=== PATIENT | female | born 1945 | race Hispanic/Latino ===

== ENCOUNTER 2025-01-01 12:46 | Emergency (ER) | payer OTHER ==
[~2025-01-01] VITALS: Ht 172.7 cm; Wt 108.0 kg
--- NOTE | 2025-01-01 13:23 | ERN ---
ED Note History of Present Illness Stated Complaint: FLU SYMPTOMS Chief Complaint: Influenza Time Seen by MD: 13:07 Time Seen by Midlevel: 13:07 Dictation: The Patient is a 79-year-old female with a history of diabetes, hypertension, back surgery who presents to the emergency department with complaints of shortness of breath, chest pain, nonproductive cough onset two days ago. Patient reports she tested positive for the flu two days ago and was started on Tamiflu by PCP. Denies any fevers. Allergies: Coded Allergies: codeine (Unverified Allergy, Unknown, 01/01/25) Home Meds Active Scripts Nirmatrelvir/Ritonavir (Paxlovid 150-100 mg (Moderate)) 150 Mg (10)-100 Mg (10) Tab.ds.pk, 1 EACH PO BID for 5 Days, #10 TAB Prov:ALEKSANDER BARRERA RECREATION OFFICER 01/01/25 Past Medical History Past Medical History: Diabetes-Type II, Hypertension Surgical History: Other Surgical History Other: PT DENIES RN Note Reviewed/Agreed w/PFSH: Yes Review of System Dictation Constitutional: Negative for fever,chills, and weight loss Eyes: Negative for injury, pain,redness, and discharge ENT: Negative for injury,pain or swelling Cardiovascular: Negative for palpitations, and edema positive for chest pain Respiratory: positive for shortness of breath, cough, wheezing Abdomen/GI: Negative for abdominal pain, nausea, vomiting, diarrhea, and constipation Back: Negative for injury and pain : Negative for injury, bleeding and discharge MS/Extremity: Negative for injury and deformity Skin: Negative for rash, and discoloration Neuro: Negative for headache, weakness, numbness, tingling, and seizure Psych: Negative for suicide ideation, homicidal ideation, and hallucinations Initial Vital Sign VS Vital Signs Date Time Temp Pulse Resp B/P (MAP) Pulse Ox O2 Delivery O2 Flow Rate FiO2 01/01/25 12:48 99.5 89 20 132/52 92 Room Air* 0 21 Physical Exam Dictation Vital Signs reviewed General Appearance: Alert, oriented x 3, no acute distress, well developed, nourished. Head and Face: non-traumatic. Eyes: PERRL, pink conjunctivas, eyelid no trauma, anterior chamber with arcus senilis. Ears: Pinnas intact and no signs of trauma or erythema ear canals clear and no discharge TM no erythema Nose: No discharge, no bleeding. Oropharynx: Mouth normal, tongue pink. pharynx clear,no erythema, tonsils no exudates, no abscesses noted, mucous membrane moist Neck: Supple, non-tender, no thyromegaly, no masses, no JVD, no bruits Breast:Deferred Chest:No tenderness, no crepitus, no paradoxical movement, no retractions Lungs:Clear, well-ventilated, symmetric, no rales, mild wheezing, no rhonchi, no stridor, good breath sounds bilaterally Heart: Regular rate, regular rhythm, no murmur, no gallops Vascular: no peripheral edema, Abdomen: Soft, positive bowel sounds, nondistended, no guarding, nontender, no rebound, no masses no hepatomegaly, no splenomegaly, no Olson's sign, no hernias. Rectal: Deferred Genital: Deferred Neurological: Normal speech, motor function intact, sensory function intact Musculoskeletal: Neck nontender, full range of motion, back nontender, full range of motion, Extremities: nontender, full range of motion Skin: Color pink, dry, no turgor, no rash, no lacerations, no abrasions, no contusions. Lymphatic: Deferred Results (Laboratory/Radiology) Laboratory/Radiology Laboratory Tests Test 01/01/25 13:15 01/01/25 13:25 01/01/25 13:42 01/01/25 15:18 Influenza Type A Antigen Negative For Type A Influenza Type B Antigen Negative For Type B SARS-CoV-2 Antigen (Rapid) POSITIVE FOR SARS AG White Blood Count 6.6 K/uL (4.8-10.8) Red Blood Count 3.89 MIL/uL (4.00-5.50) L Hemoglobin 11.5 g/dL (12.0-16.0) L Hematocrit 35.7 % (36-48) L Mean Corpuscular Volume 91.8 fL (79-99) Mean Corpuscular Hemoglobin 29.6 pg (27.0-33.0) Mean Corpuscular Hemoglobin Concent 32.2 g/dL (32.0-36.0) Red Cell Distribution Width 14.9 % (11.0-15.5) Platelet Count 183 K/uL (130-400) Mean Platelet Volume 10.8 fL (7.5-10.5) H Immature Granulocyte % (Auto) 0.5 % (0-1) Neutrophils (%) (Auto) 61.2 % (40.0-77.0) Lymphocytes (%) (Auto) 21.3 % (21.0-51.0) Monocytes (%) (Auto) 15.3 % (3.0-13.0) H Eosinophils (%) (Auto) 0.9 % (0.0-8.0) Basophils (%) (Auto) 0.8 % (0.0-5.0) Neutrophils # (Auto) 4.1 K/uL (1.8-7.7) Lymphocytes # (Auto) 1.4 K/uL (1.0-4.8) Monocytes # (Auto) 1.0 K/uL (0.1-1.0) Eosinophils # (Auto) 0.06 K/uL (0.00-0.70) Basophils # (Auto) 0.05 K/uL (0.00-0.20) Absolute Immature Granulocyte (auto 0.03 K/uL (0-1) Segmented Neutrophils % 55 % (40-70) Band Neutrophils % 11 % (0-2) H Lymphocytes % (Manual) 28 % (22-44) Monocytes % (Manual) 5 % (2-9) Eosinophils % (Manual) 1 % (1-6) Nucleated Red Blood Cells 0.0 % (0.0-0.19) Differential Comment MANUAL DIFFERENTIAL White Cell Morphology Comment CONSISTENT W/DIFF Platelet Morphology Comment ADEQUATE Red Blood Cell Morphology ANISO 1+ Sodium Level 142 mmol/L (136-145) Potassium Level 4.2 mmol/L (3.5-5.1) Chloride Level 104 mmol/L (101-111) Carbon Dioxide Level 26 mmol/L (21-32) Blood Urea Nitrogen 21 mg/dL (7-18) H Creatinine 1.2 mg/dL (0.5-1.0) H Glomerular Filtration Rate Calc 46 mL/min (>90) Random Glucose 132 mg/dL (70-105) H Total Calcium 8.8 mg/dL (8.5-10.1) Magnesium Level 2.00 mg/dL (1.80-2.40) Total Creatine Kinase 244 U/L (21-232) H Troponin I High Sensitivity 20 ng/L (4-50) 16 ng/L (4-50) B-Type Natriuretic Peptide 45 pg/mL (0-100) Blood Gas Specimen Type Arterial Arterial Blood pH 7.464 (7.350-7.450) Arterial Blood Partial Pressure CO2 33 mmHg (32-45) Arterial Blood Partial Pressure O2 75.6 mmHg (83.0-108.0) L Arterial Blood HCO3 23.1 mmol/L (21.0-28.0) Arterial Blood Oxygen Saturation 96.0 % (94.0-98.0) Arterial Blood Base Excess 0.1 mmol/L (-2.0-3.0) Blood Gas Temperature 37.0 CELSIUS (35.5-37.0) Blood Gas Vent Mode RA (ROOM AIR) FiO2 21.0 % Blood Gas Specimen Comment JOSSUE ZHAO RN REASON: cp ORDERING PHYSICIAN: ALEKSANDER BARRERA PROCEDURE: CXR1VW - CHEST 1VW PORTABLE CHEST RADIOGRAPH INDICATION: cp COMPARISON: None FINDINGS: Heart size is normal. The pulmonary vascularity and néstor appear normal. No abnormal pulmonary parenchymal opacity or consolidation identified. No significant pleural effusion noted. No pneumothorax detected. IMPRESSION: No radiographic evidence for any acute cardiopulmonary process. Labs Reviewed?: Yes EKG: (+) rhythm (Sinus rhythm) EKG Comment: Date:01/01/2025 Time:1321 Ventricular rate:79 DC interval:249 QRS duration:75 QT/QTc:395 EKG interpretation: Sinus rhythm Reviewed by ED Attending STEMI ED Course ED Course Orders Procedure Category Date Status Time Cbc With Differential LAB 01/01/25 Complete 13:13 B-Type Natriuretic LAB 01/01/25 Complete Peptide 13:13 Chest 1vw RAD 01/01/25 Resulted 13:13 12 Lead Ekg Tracing- EKG 01/01/25 Complete Technical 13:13 0.9%Nacl 1000ml (Ns PHA 01/01/25 Complete 1000ml) 13:30 Magnesium LAB 01/01/25 Complete 13:13 Creatine Kinase, Total LAB 01/01/25 Complete 13:13 Troponin I High LAB 01/01/25 Complete Sensitivity 13:13 Aspirin 325mg Tab PHA 01/01/25 Complete (Aspirin 325mg Tab) 13:30 Basic Metabolic Panel LAB 01/01/25 Complete 13:13 Covid19 (Sars Antigen LAB 01/01/25 Complete Rapid) 13:13 Influenza Type A & B, LAB 01/01/25 Complete Rapid 13:13 Methylprednisolone PHA 01/01/25 Complete Succ 125mg (Solu-Medr 13:30 Ipratropium/Albuterol PHA 01/01/25 Complete Neb (Duoneb) 13:30 Arterial Blood Gas RT 01/01/25 Transmitted 13:13 Arterial Blood Gas LAB 01/01/25 Complete 13:42 Manual Differential LAB 01/01/25 Complete 13:25 Troponin I High LAB 01/01/25 Complete Sensitivity 14:34 Current Medications Medications (Trade) Dose Ordered Sig/Ekta Route PRN Reason Start Time Stop Time Status Last Admin Dose Admin Albuterol (DUOneb) 1 UDVIAL ONCE ONCE IH 01/01/25 13:30 01/01/25 13:31 DC 01/01/25 13:46 Aspirin (Aspirin 325mg Tab) 325 mg ONCE ONCE PO 01/01/25 13:30 01/01/25 13:31 DC 01/01/25 13:38 Methylprednisolone Sodium Succinate (Solu-medROL 125MG) 125 mg ONCE ONCE IVP 01/01/25 13:30 01/01/25 13:31 DC 01/01/25 13:37 Sodium Chloride 1,000 ml @ 125 mls/hr ONCE ONCE IV 01/01/25 13:30 01/01/25 16:44 DC 01/01/25 13:37 Vital Signs Date Time Temp Pulse Resp B/P (MAP) Pulse Ox O2 Delivery O2 Flow Rate FiO2 01/01/25 16:00 97.9 74 18 154/52 97 Room Air* 0 21 01/01/25 14:28 82 18 141/42 97 Room Air* 0 21 01/01/25 13:46 92 18 01/01/25 12:48 99.5 89 20 132/52 92 Room Air 0 01/01/25 12:48 99.5 89 20 132/52 92 Room Air* 0 21 HEART Score Response (Comments) Value History: Low suspicion (0) 0 EKG: Normal 0 Age: > 65yrs (+2) 2 Risk Factors: 1-2 risk factors (+1) 1 Initial Troponin: Normal limit (0) 0 Total 3 Medical Decision Making MDM MDM: The Patient is a 79-year-old female with a history of diabetes, hypertension, back surgery who presents to the emergency department with complaints of shortness of breath, chest pain, nonproductive cough onset two days ago. Patient reports she tested positive for the flu two days ago and was started on Tamiflu by PCP. Denies any fevers. CBC showed no leukocytosis, mild normocytic anemia, chemistry showed mild hyperglycemia, GFR 46, slightly elevated CK 244, negative troponin x2,low risk Heart score negative BNP, blood gas showed slight hypoxemia, serology positive for COVID. Chest x-ray showed no acute consolidations. Discussed option to admit patient for further monitoring. At this time patient would not like to be admitted and would like to follow up with PCP. Reports she has an appointment on . Risks and benefits of admission discussed with the patient who continues to want to be discharged. I instructed the patient to call to schedule a sooner appointment with PCP. Patient instructed to return if she felt worse. Family at bedside. Patient verbalized understanding. Patient currently in no acute distress, O2 saturations were at 98% on room air. Differential diagnosis: Pneumonia, upper respiratory infection, ACS, electrolyte imbalance, dehydration Need for hospitalization: Patient does not meet criteria for hospitalization. There are no social concerns with this patient. DX & DISP Disposition: Discharge Departure Impression: Primary Impression: COVID-19 Additional Impressions: Cough, Chest pain, non-cardiac Condition: Stable Scripts Nirmatrelvir/Ritonavir (Paxlovid 150-100 mg (Moderate)) 150 Mg (10)-100 Mg (10) Tab.ds.pk 1 EACH PO BID for 5 Days, #10 TAB Prov: ALEKSANDER BARRERA RECREATION OFFICER 01/01/25 Additional Instructions: Please follow up with your pcp in 1-2 days. Take medications as prescribed. If symptoms worsen please return to ER. FOLLOW-UP WITH PRIMARY CARE PROVIDER IN 1 TO 2 DAYS. TAKE MEDICATIONS DIRECTED HERE IN THE EMERGENCY ROOM. OKAY TO CONTINUE HOME MEDICATIONS UNLESS OTHERWISE DISCUSSED DURING YOUR VISIT IN THE EMERGENCY ROOM TODAY. RETURN TO YOUR NEAREST EMERGENCY ROOM IF SYMPTOMS WORSEN OR IF THERE IS NO IMPROVEMENT. CALL 911 IF YOU NEED IMMEDIATE ASSISTANCE. TAKE TYLENOL OR MOTRIN OVER-THE- COUNTER NEEDED AND IF NO CONTRAINDICATIONS ARE PRESENT. INCREASE ORAL HYDRATION. A WOUND CULTURE OR URINE CULTURE WAS ORDERED HERE IN THE EMERGENCY ROOM DEPARTMENT PLEASE FOLLOW-UP WITH PRIMARY CARE PROVIDER AND ADVISE THEM TO GET REPEAT PORTS FROM OUR FACILITY. IF YOU HAD ANY TK WRAP/SPLINTS THAT WERE APPLIED HERE, PLEASE DO NOT REMOVE THEM UNTIL YOU SEE YOUR PRIMARY CARE OR SPECIALTY. Referrals: SELF,REFERRAL (PCP) Time of Disposition: 15:48 I have reviewed the case, and I agree with, Diagnosis and Plan I performed the substantive portion of the visit. I have reviewed and perso ember made and approve the management plan that is documented in the notes by myself or the ROB. I acknowledge full responsibility for the patient's management plan. ALEKSANDER BARRERA January 01, 2025 13:23 ROZINA AMIN MD January 02, 2025 18:04
--- NOTE | 2025-01-01 13:25 | EKG ---
[facility] Test Date: 2025-01-01 Test Time: 13:21:45 Pat Name: PARISA CROCKER Department: [facility] Room: Gender: F Junior Programmer: [id number] : 1945 Requested By: ALEKSANDER BARRERA Order Number: [id number] Reading MD: Theo Shook Measurements Intervals [place] Rate: 79 P: 6 LA: 249 QRS: -8 QRSD: 75 T: 32 QT: 395 QTc: 453 Interpretive Statements Sinus rhythm Prolonged LA interval No previous ECG available for comparison Electronically Signed On 01-03-2025 17:28:58 CDT by Theo Shook Please click the below link to view image of tracing.
[2025-01-01 13:37] LABS: BASOPHILS # (AUTO) 0.05 K/uL (0.00-0.20); BASOPHILS % (AUTO) 0.8 % (0.0-5.0); EOSINOPHILS # (AUTO) 0.06 K/uL (0.00-0.70); EOSINOPHILS % (AUTO) 0.9 % (0.0-8.0); HEMATOCRIT 35.7 % (36-48); IMMATURE GRANULOCYTE ABSOLUTE 0.03 K/uL (0-1); LYMPHOCYTES # (AUTO) 1.4 K/uL (1.0-4.8); LYMPHOCYTES % (AUTO) 21.3 % (21.0-51.0); MEAN CORPUSCULAR HEMOGLOBIN 29.6 pg (27.0-33.0); MEAN CORPUSCULAR HGB CONC 32.2 g/dL (32.0-36.0); MEAN CORPUSCULAR VOLUME 91.8 fL (79-99); MONOCYTES % (AUTO) 15.3 % (3.0-13.0); NEUTROPHILS # (AUTO) 4.1 K/uL (1.8-7.7); NEUTROPHILS % (AUTO) 61.2 % (40.0-77.0); PLATELET COUNT (AUTO) 183 K/uL (130-400); RED BLOOD CELL COUNT(AUTO) 3.89 MIL/uL (4.00-5.50); RED CELL DISTRIBUTION WIDTH 14.9 % (11.0-15.5); WHITE BLOOD COUNT (AUTO) 6.6 K/uL (4.8-10.8)
[2025-01-01] MEDS: Solu-medROL 125MG VIAL IVP ONE (13:37)
[2025-01-01] MEDS: 0.9%NACL 1000ML 1,000 ML IV ONE (13:37)
[2025-01-01] MEDS: ASPIRIN 325MG TAB PO ONE (13:38)
[2025-01-01 13:44] LABS: ABG BASE EXCESS 0.1 mmol/L (-2.0-3.0); ABG HCO3 23.1 mmol/L (21.0-28.0); ABG PCO2 33 mmHg (32-45); ABG PH 7.464 (7.350-7.450); PO2, ARTERIAL BG 75.6 mmHg (83.0-108.0); VENT MODE, BG RA (ROOM AIR)
[2025-01-01 13:45] LABS: CREATININE 1.2 mg/dL (0.5-1.0); POTASSIUM 4.2 mmol/L (3.5-5.1)
[2025-01-01 13:46] VITALS: PULSE 92; RESP 18
[2025-01-01] MEDS: IpraTROPium/alBUTERol SULFATE 3 ML SOLUTION IH ONE (13:46)
[2025-01-01 13:59] LABS: INFLUENZA TYPE A Negative For Type A (NEGATIVE); INFLUENZA TYPE B Negative For Type B (NEGATIVE)
--- NOTE | 2025-01-01 14:05 | HMCIMG ---
PORTABLE CHEST RADIOGRAPH INDICATION: cp COMPARISON: None FINDINGS: Heart size is normal. The pulmonary vascularity and néstor appear normal. No abnormal pulmonary parenchymal opacity or consolidation identified. No significant pleural effusion noted. No pneumothorax detected. IMPRESSION: No radiographic evidence for any acute cardiopulmonary process.
[2025-01-01 14:06] LABS: BAND NEUTROPHILS % (MANUAL) 11 % (0-2); EOSINOPHILS % (MANUAL) 1 % (1-6); LYMPHOCYTES % (MANUAL) 28 % (22-44); MAN.DIFF COMMENT-IMPRESSION MANUAL DIFFERENTIAL; MONOCYTES % (MANUAL) 5 % (2-9); SEGMENTED NEUTROPHILS % 55 % (40-70); TOTAL CELLS COUNTED 100
[2025-01-01 14:06] LABS: COVID19 (SARS ANTIGEN RAPID) POSITIVE FOR SARS AG (NEGATIVE)
[2025-01-01 14:07] LABS: PLATELET MORPHOLOGY COMMENT ADEQUATE; WBC MORPHOLOGY CONSISTENT W/DIFF
[2025-01-01 14:09] LABS: B-TYPE NATRIURETIC PEPTIDE 45 pg/mL (0-100)
[2025-01-01] MEDS ORDERED: NIRM1TAB7 PO (15:51)
[2025-01-01 16:00] VITALS: BP 154/52; PULSE 74; RESP 18; TEMP 97.8; O2SAT 97
== END 2025-01-01 16:43 | disposition home or self-care (01) ==
LOC: EDH 12:46
DX: U07.1 COVID-19 (principal); R07.89 Other chest pain; R05.9 Cough, unspecified; E11.9 Type 2 diabetes mellitus without complications; I10 Essential (primary) hypertension; Z88.5 Allergy status to narcotic agent; Z98.890 Other specified postprocedural states
CPT/HCPCS: 99284; 96374; 71045; 87426; 82550; 83735; 84484 ×2; 80048; 82803; 83880; 85025; 87804 ×2; 36415; 93005; 36600; 94640; J2919; J7030; 99283

== ENCOUNTER → 2025-04-28 | Emergency (ER) | payer OTHER ==
[~2025-04-28] VITALS: Ht 172.7 cm; Wt 108.0 kg
[~2025-04-28] MED LIST: CYCL5TAB3 PO; NIRM1TAB13 PO
[2025-04-28] MEDS: ORPHENADRINE 60MG/2ML IM ONE (21:15)
--- NOTE | 2025-04-28 21:18 | EKG ---
[facility] Test Date: 2025-04-28 Test Time: 21:13:14 Pat Name: PARISA CROCKER Department: [facility] Room: Gender: F Leasing Director: [id number] : 1945 Requested By: ALEKSANDER BARRERA Order Number: [id number] Reading MD: Graeme Owens Measurements Intervals [place] Rate: 67 P: 20 OK: 262 QRS: -1 QRSD: 83 T: 30 QT: 425 QTc: 447 Interpretive Statements Sinus rhythm Prolonged OK interval Inferior infarct, old Compared to ECG 01/01/2025 13:21:45 Myocardial infarct finding now present Electronically Signed On 04-30-2025 21:46:14 CDT by Graeme Owens Please click the below link to view image of tracing.
[2025-04-28 21:43] LABS: IMMATURE GRANULOCYTE ABSOLUTE 0.02 K/uL (0-1); NUCLEATED RED BLOOD CELLS 0.0 % (0.0-0.19); PLATELET COUNT (AUTO) 175 K/uL (130-400); RED BLOOD CELL COUNT(AUTO) 3.18 MIL/uL (4.00-5.50); RED CELL DISTRIBUTION WIDTH 15.0 % (11.0-15.5); WHITE BLOOD COUNT (AUTO) 7.2 K/uL (4.8-10.8)
[2025-04-28 21:56] LABS: CREATININE 1.4 mg/dL (0.5-1.0); GLOMERULAR FILTR. RATE CALC 39.0 mL/min (>90); GLUCOSE,RANDOM 125.0 mg/dL (70-105); SODIUM SERUM 143.0 mmol/L (136-145); UREA NITROGEN, BLOOD 31.0 mg/dL (7-18)
[2025-04-28 22:16] LABS: CREATINE KINASE, TOTAL 70.0 U/L (21-232)
--- NOTE | 2025-04-28 22:20 | ERN ---
ED Note History of Present Illness Stated Complaint: MID BACK PAIN Chief Complaint: Back Pain-No Injury Time Seen by MD: 21:02 Time Seen by Midlevel: 21:02 Dictation: The patient is a 79-year-old female with a history of diabetes, hypertension who presents to the emergency department with complaints of right sided upper back pain onset 3 hours prior to arrival. Patient denies any trauma but reports that she was making some bracelets. Patient reports pain is worse with palpation. Denies any chest pain or shortness of breath. Allergies: Coded Allergies: codeine (Unverified Allergy, Unknown, 01/01/25) Home Meds Active Scripts Nirmatrelvir/Ritonavir (Paxlovid 150-100 mg (Moderate)) 150 Mg (10)-100 Mg (10) Tab.ds.pk, 1 EACH PO BID for 5 Days, #10 TAB Prov:ALEKSANDER BARRERA ROAD PATCHER 01/01/25 Past Medical History Past Medical History: Diabetes-Type II, High Cholesterol, Hypertension Surgical History: Hysterectomy, Other Surgical History Other: LEFT EYE, LEFT HAND, BACK RN Note Reviewed/Agreed w/PFSH: Yes Review of System Dictation Constitutional: Negative for fever,chills, and weight loss Eyes: Negative for injury, pain,redness, and discharge ENT: Negative for injury,pain or swelling Cardiovascular: Negative for chest pain, palpitations, and edema Respiratory: Negative for shortness of breath, cough, and wheezing, Abdomen/GI: Negative for abdominal pain, nausea, vomiting, diarrhea, and constipation Back: Negative for injury and pain : Negative for injury, bleeding and discharge MS/Extremity: Positive for upper back pain Skin: Negative for rash, and discoloration Neuro: Negative for headache, weakness, numbness, tingling, and seizure Psych: Negative for suicide ideation, homicidal ideation, and hallucinations Initial Vital Sign VS Vital Signs Date Time Temp Pulse Resp B/P (MAP) Pulse Ox O2 Delivery O2 Flow Rate FiO2 04/28/25 20:50 97.9 63 20 124/46 98 Room Air 04/28/25 21:10 0 21 Physical Exam Dictation Vital Signs reviewed General Appearance: Alert, oriented x 3, no acute distress, well developed, nour ished. Head and Face: non-traumatic. Eyes: PERRL, pink conjunctivas, eyelid no trauma, anterior chamber with arcus senilis. Ears: Pinnas intact and no signs of trauma or erythema ear canals clear and no discharge TM no erythema Nose: No discharge, no bleeding. Oropharynx: Mouth normal, tongue pink. pharynx clear,no erythema, tonsils no exudates, no abscesses noted, mucous memb matilda moist Neck: Supple, non-tender, no thyromegaly, no masses, no JVD, no bruits Breast:Deferred Chest:No tenderness, no crepitus, no paradoxical movement, no retractions Lungs:Clear, well-ventilated, symmetric, no rales, no wheezing, no rhonchi, no s tridor, good breath sounds bilaterally Heart: Regular rate, regular rhythm, no murmur, no gallops Vascular: no peripheral edema, Abdomen: Soft, positive bowel sounds, nondistended, no guarding, nontender, no rebound, no masses no hepatomegaly, no splenomegaly, no Olson's sign, no hernias. Rectal: Deferred Genital: Deferred Neurological: Normal speech, motor function intact, sensory function intact Musculoskeletal: Neck nontender, full range of motion, back nontender, full range of motion,, mid/ upper back tenderness to palpation, no wounds Extremities: nontender, full range of motion Skin: Color pink, dry, no turgor, no rash, no lacerations, no abrasions, no contusions. Lymphatic: Deferred Results (Laboratory/Radiology) Laboratory/Radiology Laboratory Tests Test 04/28/25 21:29 White Blood Count 7.2 K/uL (4.8-10.8) Red Blood Count 3.18 MIL/uL (4.00-5.50) L Hemoglobin 9.1 g/dL (12.0-16.0) L Hematocrit 29.1 % (36-48) L Mean Corpuscular Volume 91.5 fL (79-99) Mean Corpuscular Hemoglobin 28.6 pg (27.0-33.0) Mean Corpuscular Hemoglobin Concent 31.3 g/dL (32.0-36.0) L Red Cell Distribution Width 15.0 % (11.0-15.5) Platelet Count 175 K/uL (130-400) Mean Platelet Volume 10.6 fL (7.5-10.5) H Immature Granulocyte % (Auto) 0.3 % (0-1) Neutrophils (%) (Auto) 66.7 % (40.0-77.0) Lymphocytes (%) (Auto) 21.5 % (21.0-51.0) Monocytes (%) (Auto) 9.8 % (3.0-13.0) Eosinophils (%) (Auto) 1.1 % (0.0-8.0) Basophils (%) (Auto) 0.6 % (0.0-5.0) Neutrophils # (Auto) 4.8 K/uL (1.8-7.7) Lymphocytes # (Auto) 1.5 K/uL (1.0-4.8) Monocytes # (Auto) 0.7 K/uL (0.1-1.0) Eosinophils # (Auto) 0.08 K/uL (0.00-0.70) Basophils # (Auto) 0.04 K/uL (0.00-0.20) Absolute Immature Granulocyte (auto 0.02 K/uL (0-1) Nucleated Red Blood Cells 0.0 % (0.0-0.19) Sodium Level 143 mmol/L (136-145) Potassium Level 3.8 mmol/L (3.5-5.1) Chloride Level 109 mmol/L (101-111) Carbon Dioxide Level 27 mmol/L (21-32) Blood Urea Nitrogen 31 mg/dL (7-18) H Creatinine 1.4 mg/dL (0.5-1.0) H Glomerular Filtration Rate Calc 39 mL/min (>90) Random Glucose 125 mg/dL (70-105) H Total Calcium 8.4 mg/dL (8.5-10.1) L Magnesium Level 1.80 mg/dL (1.80-2.40) Total Creatine Kinase 70 U/L (21-232) # Troponin I High Sensitivity 10 ng/L (4-50) REASON: sob ORDERING PHYSICIAN: ALEKSANDER BARRERA PROCEDURE: CXR1VW - CHEST 1VW EXAM: CR Chest, 1 view CLINICAL HISTORY: Shortness of breath. COMPARISON: Chest radiograph dated 01/01/2025. FINDINGS: The lungs show no infiltrates or other acute findings. No pleural effusion or pneumothorax. The cardiomediastinal silhouette is within normal limits. Mild atherosclerotic aorta. No acute osseous abnormality. IMPRESSION: No acute cardiopulmonary process is evident. Compared to the prior study, there is no significant interval change. /[place] Labs Reviewed?: Yes EKG: (+) rhythm (Sinus rhythm) EKG Comment: Date:04/28/2025 Time:2112 Ventricular rate:67 MO interval:262 QRS duration:83 QT/QTc:425/447 EKG interpretation: Sinus rhythm, prolonged MO Reviewed by ED Attending no STEMI ED Course ED Course Orders Procedure Category Date Status Time Cbc With Differential LAB 04/28/25 Complete 21:07 Chest 1vw RAD 04/28/25 Resulted 21:07 12 Lead Ekg Tracing- EKG 04/28/25 Complete Technical 21:07 Magnesium LAB 04/28/25 Complete 21:07 Creatine Kinase, Total LAB 04/28/25 Complete 21:07 Troponin I High LAB 04/28/25 Complete Sensitivity 21:07 Basic Metabolic Panel LAB 04/28/25 Complete 21:07 Ketorolac PHA 04/28/25 Complete Tromethamine 30mg/Ml 21:30 Orphenadrine Citrate PHA 04/28/25 Complete (Norflex) 21:30 Current Medications Medications (Trade) Dose Ordered Sig/Ekta Route PRN Reason Start Time Stop Time Status Last Admin Dose Admin Ketorolac Tromethamine (toRADol) 30 mg ONCE ONCE IM 04/28/25 21:30 04/28/25 21:31 DC 04/28/25 21:15 Orphenadrine Citrate (Norflex) 60 mg ONCE ONCE IM 04/28/25 21:30 04/28/25 21:31 DC 04/28/25 21:15 Vital Signs Date Time Temp Pulse Resp B/P (MAP) Pulse Ox O2 Delivery O2 Flow Rate FiO2 04/28/25 21:10 98.8 88 18 135/66 98 Room Air* 0 21 04/28/25 20:50 97.9 63 20 124/46 98 Room Air Medical Decision Making MDM The patient is a 79-year-old female with a history of diabetes, hypertension who presents to the emergency department with complaints of right sided upper back pain onset3 hours prior to arrival. Patient denies any trauma but reports that she was making some bracelets. Patient reports pain is worse with palpation. Denies any chest pain or shortness of breath. CBC showed no leukocytosis, mild normocytic anemia, chemistry showed creatinine of 1.4, slightly worsened them previous visits.Troponin was negative. Chest x- ray showed no acute pathology. Patient was reassessed. Patient reports that she is no longer having any pain. Patient instructed to follow up with primary doctor. On physical exam patient is in no acute distress, nontoxic appearance, stable vital signs. Differential diagnosis: ACS, pneumonia, musculoskeletal pain, muscle spasms Need for hospitalization: Patient does not meet criteria for hospitalization. There are no social concerns with this patient. DX & DISP Disposition: Discharge Departure Impression: Primary Impression: Back pain Additional Impression: Musculoskeletal pain Condition: Stable Scripts Cyclobenzaprine HCl (Cyclobenzaprine HCl) 5 Mg Tablet 1 TAB PO TIDP PRN for muscle spasms for 5 Days, #15 TAB 0 Refills Prov: ALEKSANDER BARRERA 04/28/25 Additional Instructions: Your labs were unremarkable except for what we talked about your kidney function in you were slightly anemic. Your chest x-ray did not show any acute pathology. Please follow up with your primary doctor in 1-2 days. If anything worsens please return to ER. FOLLOW-UP WITH PRIMARY CARE PROVIDER IN 1 TO 2 DAYS. TAKE MEDICATIONS DIRECTED HERE IN THE EMERGENCY ROOM. OKAY TO CONTINUE HOME MEDICATIONS UNLESS OTHERWISE DISCUSSED DURING YOUR VISIT IN THE EMERGENCY ROOM TODAY. RETURN TO YOUR NEAREST EMERGENCY ROOM IF SYMPTOMS WORSEN OR IF THERE IS NO IMPROVEMENT. CALL 911 IF YOU NEED IMMEDIATE ASSISTANCE. TAKE TYLENOL [id number] NEEDED AND IF NO CONTRAINDICATIONS ARE PRESENT. INCREASE ORAL HYDRATION. A WOUND CULTURE OR URINE CULTURE WAS ORDERED HERE IN THE EMERGENCY ROOM DEPARTMENT PLEASE FOLLOW-UP WITH PRIMARY CARE PROVIDER AND ADVISE THEM TO GET REPEAT PORTS FROM OUR FACILITY. IF YOU HAD ANY TK WRAP/SPLINTS THAT WERE APPLIED HERE, PLEASE DO NOT REMOVE THEM UNTIL YOU SEE YOUR PRIMARY CARE OR SPECIALTY. Referrals: RADHA PATEL (PCP) Time of Disposition: 23:01 I have reviewed the case, and I agree with, Diagnosis and Plan ALEKSANDER BARRERA Apr 28, 2025 22:20
--- NOTE | 2025-04-28 22:53 | HMCIMG ---
EXAM: CR Chest, 1 view CLINICAL HISTORY: Shortness of breath. COMPARISON: Chest radiograph dated 01/01/2025. FINDINGS: The lungs show no infiltrates or other acute findings. No pleural effusion or pneumothorax. The cardiomediastinal silhouette is within normal limits. Mild atherosclerotic aorta. No acute osseous abnormality. IMPRESSION: No acute cardiopulmonary process is evident. Compared to the prior study, there is no significant interval change. /[place]
[2025-04-28 23:06] VITALS: BP 132/62; PULSE 85; RESP 18; TEMP 98.8; O2SAT 98
== END ==
LOC: EDH 20:48
DX: M54.6 Pain in thoracic spine (principal); M79.18 Myalgia, other site; E11.9 Type 2 diabetes mellitus without complications; E78.00 Pure hypercholesterolemia, unspecified; I10 Essential (primary) hypertension; Z79.899 Other long term (current) drug therapy; Z88.5 Allergy status to narcotic agent; Z90.710 Acquired absence of both cervix and uterus; Z98.890 Other specified postprocedural states
CPT/HCPCS: 99283; 71045; 82550; 83735; 84484; 80048; 85025; 36415; 96372 ×2; 93005; J1885; J2360